=== PATIENT | male | born 1990 ===

== ENCOUNTER 2018-04-02 20:11 | Emergency (ER) | payer SELFPAY ==
[~2018-04-02] VITALS: Ht 182.9 cm; Wt 86.4 kg
[2018-04-02 20:56] VITALS: Ht 182.9 cm; Wt 86.4 kg
[2018-04-02] MEDS ORDERED: CIPRO500 MG PO (22:26)
[2018-04-02] MEDS ORDERED: PHENERGAN25 M1 PO (22:31)
[2018-04-02] MEDS ORDERED: TYLENOL W/CODEI1 TAB PO (22:31)
[2018-04-02 22:50] VITALS: BP 117/68
== END 2018-04-02 22:50 | disposition home or self-care (01) ==
LOC: D.ER 20:11
DX: J06.9 Acute upper respiratory infection, unspecified (principal); J40 Bronchitis, not specified as acute or chronic; R50.9 Fever, unspecified; M79.18 Myalgia, other site